=== PATIENT | male | born 1950 | race Caucasian/White ===

== ENCOUNTER → 2024-05-02 11:57 | Outpatient (REF) | payer MEDICARE, BC, SELFPAY ==
[2024-05-02 12:48] LABS: % Basophils 0.2 % (0-2); % Eosinophils 0.3 % (0-6); % Immature Granulocytes 0.4 % (0-0.5); % Lymphocytes 83.5 % (20.5-51.1); % Monocytes 2.5 % (1.7-9.3); % Neutrophils 13.1 % (42.2-75.2); Absolute Basophils 0.1 10^3/uL (0-0.2); Absolute Eosinophils 0.1 10^3/uL (0-0.7); Absolute Immature Granulocytes 0.1 10^3/uL (0-0.05); Absolute Lymphocytes 24.1 10^3/uL (1.2-3.4); Absolute Monocytes 0.7 10^3/uL (0.1-0.6); Absolute Neutrophils 3.8 10^3/uL (1.4-6.5); Hematocrit 39.4 % (39.0-52.0); Hemoglobin 13.6 g/dL (13.0-18.0); Mean Corp Hgb Conc. 34.5 g/dL (33.0-37.0); Mean Corpuscular Hgb 32.2 pg (27.0-31.0); Mean Corpuscular Volume 93.1 fL (80.0-94.0); Mean Platelet Volume 9.4 fL (7.4-10.4); Nucleated Red Blood Cells % 0 % (-); Platelet Count 91 10^3/uL (130-400); Red Blood Cell Count 4.23 10^6/uL (4.70-6.10); Red Cell Dist. Width 13.2 % (11.5-14.5); White Blood Cell Count 28.8 10^3/uL (4.8-10.8)
== END ==
LOC: REG 11:57
PROVIDERS: ATTENDING PHYSICIAN Internal Medicine Hematology & Oncology
DX: C91.10 Chronic lymphocytic leukemia of B-cell type not having achieved remission (principal); D69.6 Thrombocytopenia, unspecified
CPT/HCPCS: 36415; 85025

== ENCOUNTER → 2024-09-06 09:04 | Outpatient (REF) | payer MEDICARE, BC, SELFPAY ==
[2024-09-06 10:30] LABS: % Basophils 0.3 % (0-2); % Eosinophils 0.3 % (0-6); % Immature Granulocytes 0.2 % (0-0.5); % Monocytes 5.7 % (1.7-9.3); % Neutrophils 11.5 % (42.2-75.2); Absolute Basophils 0.1 10^3/uL (0-0.2); Absolute Eosinophils 0.1 10^3/uL (0-0.7); Absolute Immature Granulocytes 0.1 10^3/uL (0-0.05); Absolute Lymphocytes 25.1 10^3/uL (1.2-3.4); Absolute Monocytes 1.7 10^3/uL (0.1-0.6); Absolute Neutrophils 3.5 10^3/uL (1.4-6.5); Hematocrit 41.6 % (39.0-52.0); Hemoglobin 13.9 g/dL (13.0-18.0); Mean Corp Hgb Conc. 33.4 g/dL (33.0-37.0); Mean Corpuscular Hgb 32.3 pg (27.0-31.0); Mean Corpuscular Volume 96.5 fL (80.0-94.0); Mean Platelet Volume 9.2 fL (7.4-10.4); Nucleated Red Blood Cells % 0 % (-); Platelet Count 85 10^3/uL (130-400); Red Blood Cell Count 4.31 10^6/uL (4.70-6.10); Red Cell Dist. Width 12.7 % (11.5-14.5); White Blood Cell Count 30.6 10^3/uL (4.8-10.8)
[2024-09-06 11:32] LABS: ALT (SGPT) 30 U/L (0-50); AST (SGOT) 41 U/L (17-59); Albumin 4.7 g/dl (3.5-5.0); Alkaline Phosphatase 55 U/L (38-126); Blood Urea Nitrogen 24 mg/dl (9-20); Calcium 9.3 mg/dl (8.4-10.2); Carbon Dioxide 25 mmol/L (22-30); Chloride 105 mmol/L (98-107); Glucose 90 mg/dl (70-99); HDL Cholesterol 53 mg/dl; LDL Cholesterol, Calculated 51 mg/dl; Potassium 4.4 mmol/L (3.5-5.1); Sodium 142 mmol/L (135-145); Total Bilirubin 0.6 mg/dl (0.2-1.3); Total Cholesterol 123 mg/dl (50-199); Total Protein 6.6 g/dl (6.3-8.2); Triglyceride 95 mg/dl (10-149); Very Low Density Lipoprotein 19 mg/dl (0-30); eGFR > 60.00
[2024-09-06 11:38] LABS: TSH 2.38 uIU/ml (0.47-4.68)
== END ==
LOC: REG 09:04
PROVIDERS: ATTENDING PHYSICIAN Family Medicine
DX: E78.5 Hyperlipidemia, unspecified (principal); I10 Essential (primary) hypertension; I25.10 Atherosclerotic heart disease of native coronary artery without angina pectoris
CPT/HCPCS: 36415; 80053; 80061; 84443; 85025

== ENCOUNTER → 2024-10-03 07:39 | Outpatient (REF) | payer MEDICARE, BC, SELFPAY ==
[2024-10-03 10:51] LABS: ALT (SGPT) 27 U/L (0-50); AST (SGOT) 36 U/L (17-59); Albumin 4.8 g/dl (3.5-5.0); Alkaline Phosphatase 51 U/L (38-126); Blood Urea Nitrogen 21 mg/dl (9-20); Carbon Dioxide 27 mmol/L (22-30); Chloride 105 mmol/L (98-107); Glucose 81 mg/dl (70-99); HDL Cholesterol 59 mg/dl; LDL Cholesterol, Calculated 47 mg/dl; Potassium 4.8 mmol/L (3.5-5.1); Sodium 145 mmol/L (135-145); Total Bilirubin 0.8 mg/dl (0.2-1.3); Total Cholesterol 129 mg/dl (50-199); Total Protein 6.8 g/dl (6.3-8.2); Triglyceride 118 mg/dl (10-149); Very Low Density Lipoprotein 23 mg/dl (0-30); eGFR > 60.00
== END ==
LOC: RCS 07:39
PROVIDERS: ATTENDING PHYSICIAN Internal Medicine Interventional Cardiology; FAMILY PHYSICIAN Family Medicine
DX: Z95.2 Presence of prosthetic heart valve (principal); I35.0 Nonrheumatic aortic (valve) stenosis; E78.5 Hyperlipidemia, unspecified
CPT/HCPCS: 36415; 80053; 80061; 93306

== ENCOUNTER → 2024-11-01 14:34 | Outpatient (REF) | payer MEDICARE, BC, SELFPAY ==
[2024-11-01 15:04] LABS: Urine Albumin Negative (Neg - Trace); Urine Bilirubin Negative (Negative); Urine Character Clear (Clear); Urine Color Yellow; Urine Glucose Negative (Negative); Urine Ketone Negative (Negative); Urine Leukocyte Negative (Negative); Urine Nitrite Negative (Negative); Urine Occult Blood 1+ (Negative); Urine Urobilinogen Negative (Neg - 1+)
[2024-11-01 15:20] LABS: Uric Acid 7.3 mg/dl (3.5-8.5)
[2024-11-01 15:27] LABS: Urine Bacteria Few (Negative); Urine Red Blood Cell 0-2 /HPF (0-2); Urine Squamous Cell 0-2 /LPF (Few); Urine White Cell 0-2 /HPF (0-5)
[2024-11-01 15:45] LABS: % Basophils 0.2 % (0-2); % Eosinophils 0.3 % (0-6); % Immature Granulocytes 0.2 % (0-0.5); % Monocytes 4.4 % (1.7-9.3); % Neutrophils 11.9 % (42.2-75.2); Absolute Basophils 0.1 10^3/uL (0-0.2); Absolute Eosinophils 0.1 10^3/uL (0-0.7); Absolute Immature Granulocytes 0.1 10^3/uL (0-0.05); Absolute Lymphocytes 26.6 10^3/uL (1.2-3.4); Absolute Monocytes 1.4 10^3/uL (0.1-0.6); Absolute Neutrophils 3.8 10^3/uL (1.4-6.5); Hematocrit 41.7 % (39.0-52.0); Hemoglobin 13.6 g/dL (13.0-18.0); Mean Corp Hgb Conc. 32.6 g/dL (33.0-37.0); Mean Corpuscular Hgb 31.4 pg (27.0-31.0); Mean Corpuscular Volume 96.3 fL (80.0-94.0); Nucleated Red Blood Cells % 0 % (-); Platelet Count 82 10^3/uL (130-400); Red Blood Cell Count 4.33 10^6/uL (4.70-6.10); Red Cell Dist. Width 12.6 % (11.5-14.5)
== END ==
LOC: REG 14:34
PROVIDERS: ATTENDING PHYSICIAN Family Medicine; FAMILY PHYSICIAN Internal Medicine Hematology & Oncology
DX: C91.10 Chronic lymphocytic leukemia of B-cell type not having achieved remission (principal); D69.6 Thrombocytopenia, unspecified; Z13.89 Encounter for screening for other disorder; Z12.5 Encounter for screening for malignant neoplasm of prostate; Z87.39 Personal history of other diseases of the musculoskeletal system and connective tissue
CPT/HCPCS: 36415; 81003; 81015; 84550; 85025; G0103

== ENCOUNTER → 2025-01-17 13:50 | Outpatient (REF) | payer MEDICARE, BC, SELFPAY ==
[2025-01-17 14:54] LABS: Hematocrit 42.7 % (39.0-52.0); Hemoglobin 14.3 g/dL (13.0-18.0); Mean Corp Hgb Conc. 33.5 g/dL (33.0-37.0); Mean Corpuscular Hgb 31.4 pg (27.0-31.0); Mean Corpuscular Volume 93.8 fL (80.0-94.0); Mean Platelet Volume 9.2 fL (7.4-10.4); Platelet Count 74 10^3/uL (130-400); Red Blood Cell Count 4.55 10^6/uL (4.70-6.10); Red Cell Dist. Width 12.4 % (11.5-14.5); White Blood Cell Count 37.7 10^3/uL (4.8-10.8)
[2025-01-17 14:55] LABS: Urine Albumin Negative (Neg - Trace); Urine Bilirubin Negative (Negative); Urine Character Clear (Clear); Urine Color Yellow; Urine Glucose Negative (Negative); Urine Ketone Negative (Negative); Urine Leukocyte Negative (Negative); Urine Nitrite Negative (Negative); Urine Occult Blood 1+ (Negative); Urine Urobilinogen Negative (Neg - 1+)
[2025-01-17 15:03] LABS: Urine Red Blood Cell 0-2 /HPF (0-2); Urine Squamous Cell 0-2 /LPF (Few); Urine White Cell 0-2 /HPF (0-5)
[2025-01-17 15:11] LABS: % Basophils 0.2 % (0-2); % Eosinophils 0.2 % (0-6); % Immature Granulocytes 0.1 % (0-0.5); % Lymphocytes 85.6 % (20.5-51.1); % Monocytes 3.6 % (1.7-9.3); % Neutrophils 10.3 % (42.2-75.2); Absolute Basophils 0.1 10^3/uL (0-0.2); Absolute Eosinophils 0.1 10^3/uL (0-0.7); Absolute Immature Granulocytes 0.1 10^3/uL (0-0.05); Absolute Lymphocytes 32.3 10^3/uL (1.2-3.4); Absolute Monocytes 1.4 10^3/uL (0.1-0.6); Absolute Neutrophils 3.9 10^3/uL (1.4-6.5); Nucleated Red Blood Cells % 0 % (-)
== END ==
LOC: REG 13:50
PROVIDERS: ATTENDING PHYSICIAN Internal Medicine Hematology & Oncology; FAMILY PHYSICIAN Family Medicine
DX: C91.10 Chronic lymphocytic leukemia of B-cell type not having achieved remission (principal); D69.6 Thrombocytopenia, unspecified; R82.90 Unspecified abnormal findings in urine
CPT/HCPCS: 36415; 81003; 81015; 85025

== ENCOUNTER → 2025-03-03 09:50 | Outpatient (REF) | payer MEDICARE, BC, SELFPAY ==
[2025-03-03 11:41] LABS: Hematocrit 39.9 % (39.0-52.0); Hemoglobin 13.3 g/dL (13.0-18.0); Mean Corp Hgb Conc. 33.3 g/dL (33.0-37.0); Mean Corpuscular Hgb 31.7 pg (27.0-31.0); Mean Corpuscular Volume 95.2 fL (80.0-94.0); Mean Platelet Volume 9.2 fL (7.4-10.4); Platelet Count 97 10^3/uL (130-400); Red Blood Cell Count 4.19 10^6/uL (4.70-6.10); Red Cell Dist. Width 13.2 % (11.5-14.5); White Blood Cell Count 36.3 10^3/uL (4.8-10.8)
[2025-03-03 14:07] LABS: % Basophils 0.2 % (0-2); % Eosinophils 0.2 % (0-6); % Immature Granulocytes 0.1 % (0-0.5); % Neutrophils 9.5 % (42.2-75.2); Absolute Basophils 0.1 10^3/uL (0-0.2); Absolute Eosinophils 0.1 10^3/uL (0-0.7); Absolute Immature Granulocytes 0.1 10^3/uL (0-0.05); Absolute Lymphocytes 31.9 10^3/uL (1.2-3.4); Absolute Monocytes 0.7 10^3/uL (0.1-0.6); Absolute Neutrophils 3.4 10^3/uL (1.4-6.5); Nucleated Red Blood Cells % 0 % (-)
== END ==
LOC: REG 09:50
PROVIDERS: ATTENDING PHYSICIAN Internal Medicine Hematology & Oncology; FAMILY PHYSICIAN Family Medicine
DX: C91.10 Chronic lymphocytic leukemia of B-cell type not having achieved remission (principal); D69.6 Thrombocytopenia, unspecified
CPT/HCPCS: 36415; 85025

== ENCOUNTER → 2025-09-11 09:04 | Outpatient (REF) | payer MEDICARE, SELFPAY ==
[2025-09-11 10:00] LABS: Hematocrit 39.3 % (39.0-52.0); Hemoglobin 12.4 g/dL (13.0-18.0); Mean Corp Hgb Conc. 31.6 g/dL (33.0-37.0); Mean Corpuscular Volume 94.9 fL (80.0-94.0); Platelet Count 66 10^3/uL (130-400); Red Cell Dist. Width 13.5 % (11.5-14.5)
[2025-09-11 12:25] LABS: Nucleated Red Blood Cells % 0 % (-)
== END ==
LOC: REG 09:04
PROVIDERS: ATTENDING PHYSICIAN Internal Medicine Hematology & Oncology; FAMILY PHYSICIAN Family Medicine
DX: C91.10 Chronic lymphocytic leukemia of B-cell type not having achieved remission (principal); D69.6 Thrombocytopenia, unspecified
CPT/HCPCS: 36415; 85025

== ENCOUNTER → 2025-10-06 08:36 | Outpatient (REF) | payer MEDICARE, BC, SELFPAY ==
[2025-10-06 09:47] LABS: Hematocrit 41.8 % (39.0-52.0); Hemoglobin 13.2 g/dL (13.0-18.0); Mean Corp Hgb Conc. 31.6 g/dL (33.0-37.0); Mean Corpuscular Volume 98.1 fL (80.0-94.0); Platelet Count 60 10^3/uL (130-400); Red Cell Dist. Width 14.0 % (11.5-14.5)
[2025-10-06 09:52] LABS: Urine Character Clear (Clear)
[2025-10-06 10:18] LABS: ALT (SGPT) 31 U/L (0-50); AST (SGOT) 26 U/L (17-59); Albumin 4.4 g/dl (3.5-5.0); Alkaline Phosphatase 58 U/L (38-126); Blood Urea Nitrogen 19 mg/dl (9-20); Calcium 8.7 mg/dl (8.4-10.2); Carbon Dioxide 28 mmol/L (22-30); Chloride 108 mmol/L (98-107); Glucose 89 mg/dl (70-99); HDL Cholesterol 52 mg/dl; Iron 60 ug/dl (49-181); LDL Cholesterol, Calculated 51 mg/dl; Magnesium 2.1 mg/dl (1.6-2.3); Potassium 4.6 mmol/L (3.5-5.1); Sodium 142 mmol/L (135-145); Total Protein 6.4 g/dl (6.3-8.2); Very Low Density Lipoprotein 14 mg/dl (0-30); eGFR > 60.00
[2025-10-06 10:25] LABS: Urine Red Blood Cell 0-2 /HPF (0-2); Urine White Cell 0-2 /HPF (0-5)
[2025-10-06 10:27] LABS: Urine Squamous Cell 0-2 /LPF (Few)
[2025-10-06 10:30] LABS: Nucleated Red Blood Cells % 0 % (-)
[2025-10-06 10:37] LABS: Vitamin D, 25-OH*** 40.0 ng/mL (30-80)
[2025-10-06 10:51] LABS: TSH 2.47 uIU/ml (0.47-4.68)
[2025-10-06 11:02] LABS: Microalb - Urine Creatinine 186.700 mg/dl
[2025-10-06 11:04] LABS: Glycohemoglobin (HgbA1c) 5.8 % (4.0-5.9)
[2025-10-06 11:09] LABS: Microalbumin, Random Urine 1.1 mg/dl (0.6-1.7)
[2025-10-06 11:27] LABS: Folate 13.7 ng/ml (2.76-20); Vitamin B12 437 pg/ml (239-931)
[2025-10-08 02:34] LABS: ANA, IgG Reflex to HEp-2 None Detected (None Detected)
== END ==
LOC: REG 08:36
PROVIDERS: ATTENDING PHYSICIAN Internal Medicine Hematology & Oncology; FAMILY PHYSICIAN Family Medicine
DX: C91.10 Chronic lymphocytic leukemia of B-cell type not having achieved remission (principal); D69.6 Thrombocytopenia, unspecified; R53.83 Other fatigue; Z13.89 Encounter for screening for other disorder; I25.10 Atherosclerotic heart disease of native coronary artery without angina pectoris; E78.5 Hyperlipidemia, unspecified; Z79.899 Other long term (current) drug therapy
CPT/HCPCS: 36415; 80053; 80061; 81003; 81015; 82043; 82306; 82570; 82607; 82746; 83036; 83540; 83735; 84439; 84443; 85025; 86038

== ENCOUNTER → 2025-10-10 12:34 | Outpatient (REF) | payer MEDICARE, BC, SELFPAY | LOC: RAD 12:34 | PROVIDERS: ATTENDING PHYSICIAN Internal Medicine Hematology & Oncology; FAMILY PHYSICIAN Family Medicine | DX: C91.10 Chronic lymphocytic leukemia of B-cell type not having achieved remission (principal); D69.6 Thrombocytopenia, unspecified; I49.49 Other premature depolarization | CPT/HCPCS: 76705; 93225; 93226 ==

== ENCOUNTER → 2025-10-12 12:16 | Outpatient (REF) | payer MEDICARE, BC, SELFPAY ==
[2025-10-12 13:33] LABS: Hematocrit 43.1 % (39.0-52.0); Hemoglobin 13.6 g/dL (13.0-18.0); Mean Corp Hgb Conc. 31.6 g/dL (33.0-37.0); Mean Corpuscular Volume 99.3 fL (80.0-94.0); Platelet Count 86 10^3/uL (130-400); Red Cell Dist. Width 13.6 % (11.5-14.5)
== END ==
LOC: REG 12:16
PROVIDERS: ATTENDING PHYSICIAN Internal Medicine Hematology & Oncology; FAMILY PHYSICIAN Family Medicine
DX: C91.10 Chronic lymphocytic leukemia of B-cell type not having achieved remission (principal); D69.6 Thrombocytopenia, unspecified
CPT/HCPCS: 36415; 85025

== ENCOUNTER → 2025-10-18 15:45 | Outpatient (REF) | payer MEDICARE, BC, SELFPAY | LOC: RCS 15:45 | PROVIDERS: ATTENDING PHYSICIAN Physician Assistant Medical; FAMILY PHYSICIAN Family Medicine | DX: I49.3 Ventricular premature depolarization (principal); I49.8 Other specified cardiac arrhythmias | CPT/HCPCS: 93306 ==

== ENCOUNTER → 2025-10-23 12:08 | Outpatient (REF) | payer MEDICARE, BC, SELFPAY | LOC: HWRCS 12:08 | PROVIDERS: ATTENDING PHYSICIAN Internal Medicine Interventional Cardiology; FAMILY PHYSICIAN Family Medicine | DX: R06.09 Other forms of dyspnea (principal); I49.8 Other specified cardiac arrhythmias; I49.3 Ventricular premature depolarization | CPT/HCPCS: 78452; 93017; A9500 ==

== ENCOUNTER → 2025-11-07 06:44 | Outpatient (REF) | payer MEDICARE, BC, SELFPAY | LOC: RAD 06:44 | PROVIDERS: ATTENDING PHYSICIAN Family Medicine | DX: Z87.891 Personal history of nicotine dependence (principal); Z13.6 Encounter for screening for cardiovascular disorders | CPT/HCPCS: 76770 ==